=== PATIENT | female | born 1945 ===

== ENCOUNTER 2018-08-31 10:08 | Emergency (ER) | payer MEDICARE, OTHER ==
[2018-08-31 10:19] VITALS: TEMP 97.6; BMI 31.6
[2018-08-31 10:44] LABS: BASO # 0.1 K/uL (0.0-0.2); BASO % 1.2 % (0.0-2.0); EOS # 0.2 K/uL (0.0-0.7); LYMPH # 1.7 K/uL (1.0-4.3); LYMPH % 29.3 % (20.0-40.0); MEAN CELL VOLUME 88.8 fL (81.0-99.0); MEAN CORPUSCULAR HEMOGLOBIN 29.8 pg (27.0-31.0); MEAN CORPUSCULAR HGB CONC 33.6 g/dL (33.0-37.0); MEAN PLATELET VOLUME 8.2 fL (7.2-11.7); MONO # 0.5 K/uL (0.0-0.8); MONO % 8.7 % (0.0-10.0); NEUT # 3.4 K/uL (1.8-7.0); NEUT % 56.8 % (50.0-75.0); RBC 4.69 Mil/uL (3.80-5.20); RED CELL DISTRIBUTION WIDTH 14.1 % (11.5-14.5); WHITE BLOOD COUNT 5.9 K/uL (4.8-10.8)
[2018-08-31 10:53] LABS: ALB/GLOB RATIO 1.1 (1.0-2.1); ALBUMIN 4.7 g/dL (3.5-5.0); ALT/SGPT 19 U/L (9-52); AST/SGOT 29 U/L (14-36); BLOOD UREA NITROGEN 10 mg/dL (7-17); CALCIUM 9.7 mg/dl (8.6-10.4); GFR NON-AFRICAN AMERICAN > 60
[2018-08-31 10:59] LABS: PARTIAL THROMBOPLASTIN TIME 37.8 SECONDS (21-34); PROTHROMBIN TIME 10.5 SECONDS (9.7-12.2)
[2018-08-31 11:04] LABS: B-TYPE NATRIURETIC PEPTIDE 88.5 pg/mL (0-900)
[2018-08-31 11:32] LABS: SQUAMOUS EPITHIAL 2 /hpf (0-5); URINE BACTERIA RARE (<OCC); URINE BILIRUBIN NEGATIVE (NEGATIVE); URINE BLOOD NEGATIVE (NEGATIVE); URINE CLARITY Hazy (Clear); URINE COLOR Yellow (YELLOW); URINE GLUCOSE (UA) NORMAL (Normal); URINE LEUKOCYTE ESTERASE TRACE Leu/uL (Negative); URINE PROTEIN NEGATIVE (NEGATIVE); URINE UROBILINOGEN NORMAL mg/dL (0.2-1.0)
[2018-08-31 12:20] VITALS: BP 139/84; PULSE 72; O2SAT 96
--- NOTE | 2018-08-31 12:28 | C.PDOC ---
History Of Present Illness 73 y/o female presents to the ER complaining of sudden onset of dizziness and tremors which began when patient went to the bathroom today. Patient states that she checked her blood pressure using a cuff and she noticed it was low. So, patient reports that she took her daily blood pressure medications. Currently, patient denies dizziness, headache,CP,SOB, nausea, and vomiting. Time Seen by Provider: 08/31/18 10:22 Chief Complaint (Nursing): Dizziness/Lightheaded History Per: Patient History/Exam Limitations: no limitations Onset/Duration Of Symptoms: Hrs Current Symptoms Are (Timing): Gone Severity: Moderate Past Medical History Reviewed: Historical Data, Nursing Documentation, Vital Signs Vital Signs: Last Vital Signs Temp 97.6 F 08/31/18 10:16 Pulse 72 08/31/18 12:18 Resp 15 08/31/18 12:18 BP 139/84 08/31/18 12:18 Pulse Ox 96 08/31/18 12:18 Primary Care Provider: Nichole Gaston - Medical History PMH: HTN Other Surgeries: Hx of surgeries Family History: States: No Known Family Hx - Social History Hx Alcohol Use: No Hx Substance Use: No - Immunization History Hx Influenza Vaccination: Yes Review Of Systems Except As Marked, All Systems Reviewed And Found Negative. Constitutional: Negative for: Fever, Chills Cardiovascular: Negative for: Chest Pain Respiratory: Negative for: Shortness of Breath Neurological: Positive for: Dizziness. Negative for: Headache Physical Exam - Physical Exam Appears: No Acute Distress, Other (mild tremor) Skin: Normal Color, Warm, Dry Head: Atraumatic, Normacephalic Eye(s): bilateral: Normal Inspection Nose: Normal Oral Mucosa: Moist Neck: Supple Chest: Symmetrical Cardiovascular: Rhythm Regular Respiratory: Normal Breath Sounds, No Rales, No Rhonchi, No Wheezing Gastrointestinal/Abdominal: Normal Exam, Soft, No Tenderness, No Guarding, No Rebound Neurological/Psych: Oriented x3, Normal Speech, Normal Motor, Normal Sensation ED Course And Treatment - Laboratory Results Result Diagrams: 08/31/18 10:36 08/31/18 10:36 Lab Results: PT 10.5 SECONDS (9.7-12.2) 08/31/18 10:36 INR 1.0 08/31/18 10:36 APTT 37.8 SECONDS (21-34) H 08/31/18 10:36 Troponin I < 0.0120 ng/mL (0.00-0.120) 08/31/18 10:36 NT-Pro-B Natriuret Pep 88.5 pg/mL (0-900) 08/31/18 10:36 Total Bilirubin 0.4 mg/dL (0.2-1.3) 08/31/18 10:36 AST 29 U/L (14-36) 08/31/18 10:36 ALT 19 U/L (9-52) 08/31/18 10:36 Alkaline Phosphatase 92 U/L (38-126) 08/31/18 10:36 Total Protein 8.8 g/dL (6.3-8.3) H 08/31/18 10:36 Albumin 4.7 g/dL (3.5-5.0) 08/31/18 10:36 Globulin 4.2 gm/dL (2.2-3.9) H 08/31/18 10:36 Albumin/Globulin Ratio 1.1 (1.0-2.1) 08/31/18 10:36 Urine Color Yellow (YELLOW) 08/31/18 11:21 Urine Clarity Hazy (Clear) 08/31/18 11:21 Urine pH 6.0 (5.0-8.0) 08/31/18 11:21 Ur Specific [place] 1.006 (1.003-1.030) 08/31/18 11:21 Urine Protein Negative mg/dL (NEGATIVE) 08/31/18 11:21 Urine Glucose (UA) Normal mg/dL (Normal) 08/31/18 11:21 Urine Ketones Negative mg/dL (NEGATIVE) 08/31/18 11:21 Urine Blood Negative (NEGATIVE) 08/31/18 11:21 Urine Nitrate Negative (NEGATIVE) 08/31/18 11:21 Urine Bilirubin Negative (NEGATIVE) 08/31/18 11:21 Urine Urobilinogen Normal mg/dL (0.2-1.0) 08/31/18 11:21 Ur Leukocyte Esterase Trace Rajani/uL (Negative) 08/31/18 11:21 Urine WBC (Auto) 4 /hpf (0-5) 08/31/18 11:21 Urine RBC (Auto) 2 /hpf (0-3) 08/31/18 11:21 Ur Squamous Epith Cells 2 /hpf (0-5) 08/31/18 11:21 Urine Bacteria Rare (<OCC) 08/31/18 11:21 Lab Interpretation: Normal (ua neg, trop neg.) ECG: Interpreted By Me ECG Rhythm: Sinus Rhythm ECG Interpretation: Normal Rate From EC O2 Sat by Pulse Oximetry: 96 (RA) Pulse Ox Interpretation: Normal - Radiology CXR: Interpreted by Me CXR Interpretation: Yes: No Acute Disease Reevaluation Time: 12:28 Reassessment Condition: Improved Medical Decision Making Medical Decision Making: if acute dizzy and hypotentive while heading to the bathroom, suspect vasovagal asymptomatic w ED eval normal w/u pt prefers d/c home to Obs Disposition Doctor Will See Patient In The: Office Counseled Patient/Family Regarding: Studies Performed, Diagnosis - Disposition Referrals: Nichole Gaston MD [Medical Doctor] - Disposition: HOME/ ROUTINE Disposition Time: 12:30 Condition: GOOD Additional Instructions: sigue con la Dra Gaston Evaluacion' hoy fue NORMAL Instructions: Vasovagal Response, Near Fainting (DC) Forms: [employer] ([place]) Print Language: HEBREW - Clinical Impression Clinical Impression: Anxiety, Near syncope - Scribe Statement The provider has reviewed the documentation as recorded by the Chiara Salazar Provider Attestation: All medical record entries made by the Scribe were at my direction and personally dictated by me. I have reviewed the chart and agree that the record accurately reflects my personal performance of the history, physical exam, medical decision making, and the department course for this patient. I have also personally directed, reviewed, and agree with the discharge instructions and disposition.
[2018-08-31 12:48] VITALS: RESP 16
--- NOTE | 2018-08-31 12:53 | RAD ---
Date of service: 08/31/2018 PROCEDURE: CHEST RADIOGRAPH, 1 VIEW HISTORY: SOB COMPARISON: None available. FINDINGS: LUNGS: Clear. PLEURA: No pneumothorax or pleural fluid seen. CARDIOVASCULAR: No aortic atherosclerotic calcification present. Normal. OSSEOUS STRUCTURES: No significant abnormalities. VISUALIZED UPPER ABDOMEN: Normal. OTHER FINDINGS: None. IMPRESSION: No active disease.
--- NOTE | 2018-09-01 12:16 | CARD ---
APPROVED REPORT Date of service: 08/31/2018 EKG Measurement Heart [id number] <Conclusion> Normal sinus rhythm Normal ECG
== END 2018-08-31 12:47 | disposition home or self-care (01) ==
LOC: C.ER 10:08
DX: R55 Syncope and collapse (principal); F41.9 Anxiety disorder, unspecified